=== PATIENT | female | born 1965 | race Caucasian/White ===

== ENCOUNTER 2019-07-30 12:54 | Emergency (ER) | payer SELFPAY ==
[~2019-07-30] VITALS: Ht 165.1 cm; Wt 85.3 kg
[~2019-07-30 12:54] MED LIST: CITA20TA9 PO; ESOM40CA PO; GABA-826 PO; ONDA4TAB7 PO; PROM25SU34 RC; QUET100T4 PO
[2019-07-30 15:42] VITALS: BP 107/67
== END 2019-07-30 15:45 | disposition home or self-care (01) ==
LOC: ED 14:56
DX: B37.9 Candidiasis, unspecified (principal); Z90.89 Acquired absence of other organs; Z90.49 Acquired absence of other specified parts of digestive tract
CPT/HCPCS: 82962; 99282

== ENCOUNTER 2019-08-29 12:39 | Emergency (ER) | payer SELFPAY ==
[~2019-08-29] VITALS: Ht 165.1 cm; Wt 82.9 kg
--- NOTE | 2019-08-29 13:30 | NUR ---
MED STUDENT AQT BEDSIDE FOR INITIAL ASSESSMENT.
[2019-08-29 13:40] LABS: BASOPHILS # (AUTO) 0.03 x10^3/uL (0-0.1); BASOPHILS % (AUTO) 0 % (0-1); EOSINOPHILS # (AUTO) 0.11 x10^3/uL (0-0.4); EOSINOPHILS % (AUTO) 1 % (1-7); LYMPHOCYTES # (AUTO) 4.15 x10^3/uL (1-3.4); LYMPHOCYTES % (AUTO) 35 % (22-44); MD NO; MEAN CORPUSCULAR HEMOGLOBIN 30.1 pg (27.0-34.8); MEAN CORPUSCULAR HGB CONC 32.9 g/dL (32.4-35.8); MEAN CORPUSCULAR VOLUME 91.3 fL (80-100); MEAN PLATELET VOLUME 8.4 fL (7.4-10.4); MONOCYTES # (AUTO) 0.62 x10^3/uL (0.2-0.8); MONOCYTES % (AUTO) 5 % (2-9); NEUTROPHILS # (AUTO) 6.82 x10^3/uL (1.8-6.8); NEUTROPHILS % (AUTO) 58 % (42-75); PLATELET COUNT 473 x10^3/uL (130-400); RED BLOOD COUNT 5.14 x10^6/uL (3.82-5.3); RED CELL DISTRIBUTION WIDTH 13.4 % (9.6-15.2)
--- NOTE | 2019-08-29 13:44 | NUR ---
PSYCH MILTON KEARNEY AT BEDSIDE FOR PT ASSESSMENT.
[2019-08-29 13:52] LABS: ALBUMIN 3.7 g/dL (3.4-5.0); ANION GAP 6 mmol/L (5-15); CALCIUM 8.9 mg/dL (8.5-10.1); CHLORIDE 108 mmol/L (98-107); CREATININE 0.91 mg/dL (0.55-1.02)
[2019-08-29 13:54] LABS: SALICYLATE LEVEL < 1.7 mg/dL (2.8-20.0)
--- NOTE | 2019-08-29 14:10 | NUR ---
psyc assessment complete. pt instructed to provide urine sample, pt up to bathroom with sitter at this time. room secure. pt's belongings have been placed in locked cabinet. pt in gown.
[2019-08-29 14:39] LABS: HCG UR SG 1.017 (1.003-1.030); MICROSCOPIC AUTO
[2019-08-29 14:40] LABS: CULTURE INDICATED? YES
--- NOTE | 2019-08-29 14:40 | NUR ---
PT PRESENTS TO ED WITH C/O TRANSIENT SUICIDAL THOUGHTS AND THOUGHTS OF HURTING HER BOYFRIEND. PT DENIES SI/HI THOUGHTS AT THIS TIME. PT HAS REMOTE HX SUICIDE ATTEMPT, ATTEMPTED BY WALKING INTO TRAFFIC. PT STATES SHE HAS NO PLAN FOR SUICIDE AT THIS TIME, STATES "I'M JUST HAVING A MENTAL BREAK, I NEED HELP." ROOM SECURE. SITTER MONITORING FROM HALLWAY FOR SAFETY. PT IS CALM AND COOPERATIVE.
[2019-08-29 14:56] LABS: AMPHETAMINE SCREEN, URINE Negative (Negative); BARBITURATE SCREEN, URINE Negative (Negative); BENZODIAZEPINE SCREEN, URINE Negative (Negative); CANNABINOID SCREEN, URINE Positive (Negative); COCAINE SCREEN, URINE Negative (Negative); METHADONE SCREEN, URINE Negative (Negative); OPIATE SCREEN, URINE Negative (Negative)
--- NOTE | 2019-08-29 15:00 | NUR ---
report given to DESMOND Saunders at this time. pt a&o, resps even and unlabored, nadn at this time.
[2019-08-29 15:15] LABS: ALANINE AMINOTRANSFERASE 26 U/L (12-78); ALBUMIN 3.8 g/dL (3.4-5.0)
[2019-08-29 15:17] LABS: ALKALINE PHOSPHATASE 133 U/L (45-117); BILIRUBIN,TOTAL 0.6 mg/dL (0.2-1.0); TOTAL PROTEIN 7.7 g/dL (6.4-8.2)
[2019-08-29 15:19] LABS: BILIRUBIN, DIRECT < 0.1 mg/dL (0.1-0.2); BILIRUBIN,INDIRECT 0.5 mg/dL (0.0-2.0)
--- NOTE | 2019-08-29 15:23 | NUR ---
Received bedside report from DESMOND Worrell. All questions answered. Pt resting in room with SI/HI precautions in place. No needs expressed at this time. Sitter near doorway in direct line of sight for observation.
--- NOTE | 2019-08-29 15:38 | NUR ---
Called housekeeping and requested hospital bed for pt.
--- NOTE | 2019-08-29 17:27 | NUR ---
LATE NOTE FOR 1629: Pt resting with eyes closed on gurney in room secured for SI/HI. Sitter in direct line of sight for observation. No needs expressed at this time.
--- NOTE | 2019-08-29 17:28 | NUR ---
Pt resting on gurney. Pt has unlabored respirations with even chest rise and fall. No needs expressed at this time. Room remains secured for SI/HI. Sitter near doorway in direct line of sight for observaiton. Dinner tray ordered for pt.
[2019-08-29] MEDS ORDERED: IBUPROFEN 600 MG TABLET PO ONE (17:30)
--- NOTE | 2019-08-29 18:01 | NUR ---
Pt provided hospital bed. Pt apprecaitive. No needs expressed. Sitter near doorway in direct line of sight for observation.
--- NOTE | 2019-08-29 19:02 | NUR ---
Pt bedside report from Nicky you. This rn to assume care of pt. Roller doors in place. Sitter in hallway. This rn to medicate for pain per sep.
[2019-08-29] MEDS ORDERED: IBUPROFEN 600 MG TABLET ONE (19:07)
--- NOTE | 2019-08-29 19:09 | NUR ---
PACKET FAXED TO [facility]
--- NOTE | 2019-08-29 20:39 | NUR ---
Pt sleeping comfortably on bed. Rr even and unlabored. States relief from pain from motrin admin. WCTM.
--- NOTE | 2019-08-29 21:20 | NUR ---
Pt sleeping comfortably on bed. Rr even and unlabored. States relief from pain from motrin admin. WCTM.
--- NOTE | 2019-08-29 22:16 | NUR ---
Pt sleeping comfortably on bed. Rr even and unlabored. States relief from pain from motrin admin. WCTM.
[2019-08-29] MEDS: OLANZAPINE 2.5 MG TABLET PO SCH (22:45)
--- NOTE | 2019-08-29 23:12 | NUR ---
Pt medicated per mar and requested water. Supplied per request. No other immediate needs.
--- NOTE | 2019-08-30 00:57 | NUR ---
Pt sleeping comfortably on bed. Rr even and unlabored. States relief from pain from motrin admin. WCTM.
--- NOTE | 2019-08-30 01:59 | NUR ---
PT SLEEPING. NAD. SITTER IN PLACE.
--- NOTE | 2019-08-30 02:56 | NUR ---
REPORT RECEIVED FROM DESMOND HAMPTON. PLAN OF CARE DISCUSSED. PATIENT SLEEPING IN HOSPITAL BED, RESPIRATIONS EVEN AND UNLABORED. SITTER AT DOOR
--- NOTE | 2019-08-30 02:56 | NUR ---
Pt report to Jessica you.
--- NOTE | 2019-08-30 03:54 | NUR ---
PATIENT SLEEPING IN HOSPITAL BED, RESPIRATIONS EVEN AND UNLABORED. SITTER AT DOOR
--- NOTE | 2019-08-30 04:51 | NUR ---
PATIENT SLEEPING IN HOSPITAL BED, RESPIRATIONS EVEN AND UNLABORED. SITTER AT DOOR
--- NOTE | 2019-08-30 06:10 | NUR ---
PATIENT SLEEPING IN HOSPITAL BED, RESPIRATIONS EVEN AND UNLABORED. SITTER AT DOOR
--- NOTE | 2019-08-30 06:54 | NUR ---
REPORT GIVEN TO DESMOND POWELL. PLAN OF CARE DISCUSSED
--- NOTE | 2019-08-30 06:57 | NUR ---
REPORT RECEIVED FROM JEFF LOGAN.
--- NOTE | 2019-08-30 07:26 | NUR ---
pt amb to br with steady gait.
--- NOTE | 2019-08-30 08:28 | NUR ---
medication ordered from pharmacy at this time.
--- NOTE | 2019-08-30 08:48 | NUR ---
pt medicated per emar. pt tolerated well.
[2019-08-30] MEDS: OLANZAPINE 2.5 MG TABLET PO SCH ×2 (08:52→20:38)
--- NOTE | 2019-08-30 09:35 | NUR ---
report received from DESMOND Livingston, this RN assuming care at this time.
--- NOTE | 2019-08-30 10:00 | NUR ---
pt eating breakfast provided on SI meal tray. pt a&o, resps even and unlabored, no complaint at this time. pt denies suicidal ideation at this time. pt calm and cooperative. sitter monitoring from hallway for safety. room secure.
--- NOTE | 2019-08-30 11:06 | NUR ---
report to break DESMOND aWlsh.
--- NOTE | 2019-08-30 11:10 | NUR ---
BREAK RN: PT MOSTLY SLEEPING ON HOSPITAL BED, RESPONDS APPROP TO STAFF, CALM & COOPERATIVE, NAD, NO NEEDS AT THIS TIME, PT REMAINS IN SAFE ENVIRONMENT, SITTER IN VIEW.
--- NOTE | 2019-08-30 12:39 | NUR ---
PT SLEEPING, RESPS EVEN AND UNLABORED. ROOM SECURE. SITTER MONITORING FROM HALLWAY FOR SAFETY.
--- NOTE | 2019-08-30 13:04 | NUR ---
REPORT GIVEN TO DESMOND PEARL. LABS REVIEWED BY MD MEL MD NOTIFIED +URINE RESULTS. MD TO ORDER ABX.
--- NOTE | 2019-08-30 13:15 | NUR ---
break RN note: pt sleeping, resps even and unlabored, room secure, sitter monitoring from hallway for safety.
--- NOTE | 2019-08-30 14:12 | NUR ---
BREAK RN NOTE: REPORT GIVEN TO DESMOND PEARL WHO IS RESUMING CARE. ORDER FOR ABX FOR UTI REQUESTED A SECOND TIME FROM SKINNY LEAL.
[2019-08-30] MEDS ORDERED: NITROFURANTOIN (MACROBID) 100 MG CAPSULE PO ONE (14:30)
--- NOTE | 2019-08-30 14:45 | NUR ---
ASSUMED CARE. PT SLEEPING. ROOM SUPPLIES SECURED BEHIND PULL-DOWN DOORS. SITTER IN VIEW
--- NOTE | 2019-08-30 15:01 | NUR ---
AWAKE AND OUT OF BED AND TO PHONE ON WALL
[2019-08-30] MEDS ORDERED: NITROFURANTOIN (MACROBID) 100 MG CAPSULE ONE (16:19)
--- NOTE | 2019-08-30 17:26 | NUR ---
PROVIDED DINNER AND VISITOR AT BEDSIDE.
--- NOTE | 2019-08-30 18:33 | NUR ---
PT SLEEPING. REMAINS IN DIRECT VIEW OF SITTER.
[2019-08-30] MEDS ORDERED: OLANZAPINE 5 MG TABLET ONE (20:28)
--- NOTE | 2019-08-30 20:39 | NUR ---
Medicated per emar Vitals signS updated With reassessment" Patient comfortably resting on hospital bed. Denies pain. ADMIT TO CONTINUED SUICIDAL IDEATION WITH NO PLAN. SITTER WITHIN DIRECT EYELINE
--- NOTE | 2019-08-30 21:01 | NUR ---
REPORT TO NOY LOGAN
--- NOTE | 2019-08-30 22:37 | NUR ---
Received report, assumed patient care. Patient sleeping soundly. Sitter at bedside able to visualize patient.
--- NOTE | 2019-08-31 01:03 | NUR ---
Report from Jose RN, pt sleeping, equal chest rise, no acute distress noted, sitter at bedside.
--- NOTE | 2019-08-31 02:00 | NUR ---
Pt continous to sleep soundly, equal chest rise noted, no signs of distress, sitter at bedside.
--- NOTE | 2019-08-31 03:49 | NUR ---
Pt easily aroused, denies SI at this time. Sitter at bedside for continous watch.
--- NOTE | 2019-08-31 05:10 | NUR ---
Pt sleeping in no acute distress noted, equal chest rise, sitter at bedside.
--- NOTE | 2019-08-31 05:42 | NUR ---
Pt awake sitting up on bed, offered water to pt, sitter at bedside.
--- NOTE | 2019-08-31 06:13 | NUR ---
Pt c/o right shoulder pain requesting tylenol. Updated ERP on UA and shoulder pain.
[2019-08-31] MEDS ORDERED: IBUPROFEN 200 MG TABLET ONE (06:20)
[2019-08-31] MEDS ORDERED: IBUPROFEN 600 MG TABLET PO ONE (06:30)
--- NOTE | 2019-08-31 06:51 | NUR ---
Report given to Sheri LOGAN.
--- NOTE | 2019-08-31 06:58 | NUR ---
REPORT RECEIVED FROM DILAN RN. PT ASLEEP ON HOSPITAL BED, SITTER IN HALLWAY FOR CLOSE OBS PRECAUTIONS, EVEN RISE AND FALL OF CHEST AND ROOM AIR.
[2019-08-31 07:30] VITALS: BP 112/65
[2019-08-31] MEDS ORDERED: NITROFURANTOIN (MACROBID) 100 MG CAPSULE ONE (08:14)
[2019-08-31] MEDS: OLANZAPINE 2.5 MG TABLET PO SCH (08:52)
--- NOTE | 2019-08-31 08:52 | NUR ---
PT MEDICATED PER ORDERS. GIVEN SNACK PER REQUEST. SITTER IN HALLWAY IN DIRECT LINE OF SIGHT FOR CLOSE OBS PRECAUTIONS.
[2019-08-31] MEDS ORDERED: NITROFURANTOIN (MACROBID) 100 MG CAPSULE PO ONE (09:00)
--- NOTE | 2019-08-31 09:21 | NUR ---
PT'S MOTHER ALANIS CALLED AND GIVEN UPDATES ON PT CONDITION AT [phone].
--- NOTE | 2019-08-31 10:37 | NUR ---
PT ASLEEP ON HOSPITAL BED, SITTER IN HALLWAY IN DIRECT LINE OF SIGHT FOR CLOSE OBS PRECAUTIONS.
--- NOTE | 2019-08-31 11:36 | NUR ---
DIET TRAY ORDERED.
--- NOTE | 2019-08-31 11:55 | NUR ---
REPORT GIVEN TO DESMOND HOBBS. CARE TRANSFERRED AT THIS TIME. TRAY DELIVERED TO LEAD SECURITY OFFICER.
--- NOTE | 2019-08-31 11:59 | NUR ---
REPORT RECEIVED FROM EMMANUEL LOGAN. ASSUMING CARE AT THIS TIME. DIET TRAY DELIVERED.
--- NOTE | 2019-08-31 14:51 | NUR ---
PT SLEEPING ON HOSPITAL BED. NADN. PT IN DIRECT SIGHT OF SITTER. ROOM SECURE
== END 2019-08-31 15:47 | disposition home or self-care (01) ==
LOC: ED 18:29
DX: R45.851 Suicidal ideations (principal); F32.9 Major depressive disorder, single episode, unspecified; F23 Brief psychotic disorder
CPT/HCPCS: 36415; 80048; 80076; 80307; 81001; 81025; 82040; 85025; 87086; 99285